=== PATIENT | female | born 1995 ===

== ENCOUNTER 2017-12-16 06:15 | Day surgery (SDC) | payer OTHER ==
[2017-12-10 12:13] VITALS: BMI 24.2
[2017-12-16] MEDS ORDERED: Propofol 10 mg/ml Inj (20 ML) ONE (07:27)
[2017-12-16] MEDS ORDERED: Midazolam 2 MG/2 ML VIAL ONE (07:27)
[2017-12-16] MEDS ORDERED: ceFAZolin 1 gm in NS 1 GM/100 ML BAG IVPB ONE (08:40)
--- NOTE | 2017-12-16 09:17 | PCM.OP ---
Operative Report - Operative Report Date of Surgery/Procedure: 12/16/17 Time of Surgery/Procedure: 09:13 Surgeon: Radha Aguayo MD Information Manager: None Anesthesia/Sedation: Gen with LMA Pre-Operative Diagnosis: Abnormal urterine bleeding. Chronic pelvic pain Post-Operative Diagnosis: Abnormal uterine bleeding. Uterine septum. Endometrial polyp Indication for Surgery: worsening abnormla uterine bleeding Operative Findings: Muliple polyps within the endometrial cavity, large endometrial polyp in close proximity to left tube cornua. uterine septum with a small cavity on patient right side, dominant endometrial cavity on patient left side. Polyps originated from cavity on right side. Procedure/Operation Description: Hysteroscopic resection of uterine septum and endometrial polpys. Removal or IUD. Insertion of IUD following the hysteroscopic procedure. DESCRIPTION: This is a 22 years old female with long- standing and worsening symptoms of abnormal uterine bleeding, endometrial polyps , and suspected uterine septum based on imaging studies. The patient was treated with intrauterine device which was inserted recently for contraception as well as control of bleeding. Sonohysterogram in the office revealed endometrial polyps possible uterine septum. The patient described these symptoms to be debilitating and affecting her quality of life. Decision was made to attempt a Hysteroscopic resection of this uterine septum for fixation and extraction of endometrial polyps. The patient elected to proceed with surgical management, namely a Hysteroscopic resection utilizing myosure device. After proper consent was obtained from the patient, patient was taken to the operating room, placed in the dorsolithotomy position; general anesthesia was obtained without difficulty. She was draped and prepped appropriately for hysteroscopic procedure, her legs were placed in adjustable Paul stirrups, and careful attention was placed to avoid hyperflexion or hypertrophic and of the lower extremities at the hip or knee joints. Wray catheter was inserted under sterile conditions. Prior to the start of the procedure, the intrauterine device was extracted with a grasper and placed in the basin for later reinsertion following the completion of the resection. A dilator was inserted into the cervix, cervix dilated and hysteroscopy was advanced into the endometrial cavity and initial survey of the cavity showed an abnormal endometrial cavity with a uterine septum dividing the endometrial cavity intact spaces dominant LEFT endometrial cavity with a smaller right-sided endometrial cavity with multiple polyps present. the 2 cavities was a partial uterine septum which was fairly thick. A hysteroscopic resectoscope was entered into the endometrial cavity, meticulous and slow resection of this endometrial polyp this was accomplished with excellent hemostasis. Attention was then turned to the uterine septum. Utilizing the same hysteroscope this uterine septum was resected in a slow and meticulous fashion taking great care not to perforate the uterine cavity. The septum was resected combining both cavities within the endometrium with excellent hemostasis. Both cornua was identified. The fluid media utilizing this procedure was normal saline. Fluid deficit was 160 cc. Pattern to completion of the resection of the uterine septum as well as polyps, intrauterine device was reinserted into the endometrial cavity getting a short segment of the straining exposed the cervix. The patient emerged from general anesthesia without any difficulty. The patient was taken to the recovery room in stable condition. Prior to incision patient received prophylactic antibiotics, prior to closure sponge lap and needle counts are correct x2. Estimated Blood Loss: 5 Blood Replaced: none Sponge/Instrument Count: count correct times 2 Drains: none Complications: none Specimen: uteine septum. endometrial polyps Discharge & Condition: discharge as per criteria
[2017-12-16] MEDS ORDERED: HYDROmorphone 0.5 mg/0.5 ml ISec IVP PRN (09:18)
[2017-12-16] MEDS ORDERED: Sodium Chloride 0.9% 1,000 ML IV SCH (09:30)
[2017-12-16 11:08] VITALS: BP 101/70; PULSE 86; RESP 18; TEMP 98; O2SAT 100
[2017-12-16] MEDS ORDERED: Oxycodone/Acetaminophen 5/325 mg Tab PO PRN (12:00)
== END 2017-12-16 12:00 | disposition home or self-care (01) ==
LOC: C.SDS 06:15
PROVIDERS: ATTEND Obstetrics & Gynecology
DX: N84.0 Polyp of corpus uteri (principal); Z30.433 Encounter for removal and reinsertion of intrauterine contraceptive device; N93.9 Abnormal uterine and vaginal bleeding, unspecified; N94.6 Dysmenorrhea, unspecified; Q51.2 Other doubling of uterus; R10.2 Pelvic and perineal pain; G89.29 Other chronic pain
CPT/HCPCS: 58300; 58301; 58558; 58560; 88305; J0690; J1100; J1170; J1885; J2001; J2250; J2704; J3010